=== PATIENT | female | born 2005 | race Caucasian/White ===

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

== ENCOUNTER 2024-06-24 13:50 | Emergency (ER) | payer OTHER ==
[~2024-06-24] VITALS: Ht 165.1 cm; Wt 53.1 kg
[~2024-06-24 13:50] MED LIST changes: +Ondansetron4 MG PO; +PEPCID40 MG PO
[2024-06-24] MEDS ORDERED: SODIUM CHLORIDE 0.9% 1,000 ML IV ONE (14:10)
[2024-06-24] MEDS ORDERED: Metoclopramide Hydrochloride 10 MG/2 ML VIAL IV ONE (14:10)
[2024-06-24] MEDS ORDERED: diphenhydrAMINE hydrochloride 50 MG/ML VIAL IV ONE (14:10)
[2024-06-24 14:26] LABS: BASO % 0.3 % (0.0-1.0); EOS % 0.2 % (1.0-4.0); HEMATOCRIT 40.4 % (37.0-47.0); MEAN CELL VOLUME 92.9 fl (81.0-99.0); MEAN CORPUSCULAR HGB 29.9 pg (27.0-31.0); MEAN CORPUSCULAR HGB CONC 32.2 g/dl (33.0-37.0); MEAN PLATELET VOLUME 9.7 fl (9.6-12.3); MONO # 0.3 10*3/uL (0.1-1.0); MONO % 2.9 % (3.0-9.0); NEUT # 6.8 10*3/uL (2.3-7.9); NEUT % 78.8 % (47.0-73.0); PLATELET COUNT AUTOMATED 279 10*3/uL (130-400); RED BLOOD COUNT 4.35 10*6/uL (4.10-5.10); WHITE BLOOD COUNT 8.6 10*3/uL (4.8-10.8)
[2024-06-24] MEDS ORDERED: IOHEXOL 300 MG/ML 100 ML VIAL IV ONE (14:35)
[2024-06-24 14:48] LABS: ALKALINE PHOSPHATASE 49 U/L (46-116); BUN 10 mg/dl (9-23); CHLORIDE 104 mmol/L (98-107); LIPASE 28 U/L (12-53); POTASSIUM 3.8 mmol/L (3.4-5.1); SGPT/ALT 17 U/L (5-49); TOTAL PROTEIN 6.9 gm/dL (6.0-8.0)
[2024-06-24 15:44] LABS: BILIRUBIN Negative (Negative); BLOOD Negative (Negative); CLARITY Cloudy (Clear); COLOR Yellow (Yellow); GLUCOSE Negative (Negative); KETONE Trace (Negative); LEUKO ESTERASE Negative (Negative); NITRITE Negative (Negative); PH 7.5 (4.5-8.0); SPECIFIC GRAVITY 1.025 (1.001-1.030)
[2024-06-24] MEDS ORDERED: Ciprofloxacin Hydrochloride 500 MG TAB PO ONE (16:05)
[2024-06-24] MEDS ORDERED: metroNIDAZOLE 500 MG TAB PO ONE (16:05)
[2024-06-24 16:06] LABS: URINE AMPHETAMINES Negative (1000ng/ml); URINE BARBITURATES Negative (200ng/ml); URINE BENZODIAZEPINES Negative (200ng/ml); URINE CANNABINOIDS (THC) Positive (50ng/ml); URINE COCAINE Negative (300ng/ml); URINE METHADONE Negative (300ng/ml); URINE OPIATES Negative (300ng/ml); URINE PHENCYCLIDINE Negative (25ng/ml)
[2024-06-24 16:24] LABS: BACTERIA 1+; EPITHELIAL CELLS 21-30; MUCOUS 3+
[2024-06-24] MEDS ORDERED: METRONIDAZOLE500 M1 PO (16:28)
[2024-06-24] MEDS ORDERED: Ondansetron4 MG SL (16:28)
[2024-06-24] MEDS ORDERED: CIPRO500 MG PO (16:28)
== END 2024-06-24 16:47 | disposition home or self-care (01) ==
LOC: ED 13:50
PROVIDERS: Internal Medicine
DX: K52.9 Noninfective gastroenteritis and colitis, unspecified (principal); K21.9 Gastro-esophageal reflux disease without esophagitis; J45.909 Unspecified asthma, uncomplicated; Z79.899 Other long term (current) drug therapy

== ENCOUNTER 2024-11-13 20:25 | Emergency (ER) | payer OTHER ==
[~2024-11-13] VITALS: Ht 165.1 cm
[~2024-11-13 20:25] MED LIST changes: +METRONIDAZOLE500 M1 PO; +Ondansetron4 MG SL
[2024-11-13] MEDS ORDERED: Ondansetron Hydrochloride 4 MG/2 ML VIAL IV ONE (20:55)
[2024-11-13] MEDS ORDERED: SODIUM CHLORIDE 0.9% 1,000 ML IV ONE (20:55)
[2024-11-13 21:12] LABS: BASO # 0.0 10*3/uL (0.0-0.1); BASO % 0.4 % (0.0-1.0); EOS # 0.0 10*3/uL (0.0-0.4); EOS % 0.0 % (1.0-4.0); MEAN CELL VOLUME 93.2 fl (81.0-99.0); MEAN CORPUSCULAR HGB 30.5 pg (27.0-31.0); MEAN PLATELET VOLUME 10.8 fl (9.6-12.3); MONO # 0.2 10*3/uL (0.1-1.0); MONO % 3.2 % (3.0-9.0); NEUT # 5.9 10*3/uL (2.3-7.9); NEUT % 79.2 % (47.0-73.0); NUCLEATED RED BLOOD CELL 0.0 % (0.0-0.0); NUCLEATED RED BLOOD CELL 0.0 10*3/uL (0.0-0.0); PLATELET COUNT AUTOMATED 208 10*3/uL (130-400); RED CELL DISTRI WIDTH 12.5 % (0-14.5)
[2024-11-13 21:30] LABS: BILIRUBIN Negative (Negative); BLOOD Negative (Negative); CLARITY Clear (Clear); COLOR Yellow (Yellow); KETONE 2+ (Negative); LEUKO ESTERASE Negative (Negative); NITRITE Negative (Negative); PH 8.0 (4.5-8.0); SPECIFIC GRAVITY 1.025 (1.001-1.030); UROBILINOGEN 1.0 E.U./dl (0.0-1.0)
[2024-11-13 21:42] LABS: BACTERIA 1+; MUCOUS 2+
[2024-11-13 21:47] LABS: BUN 15 mg/dl (9-23)
[2024-11-13] MEDS ORDERED: Ondansetron4 MG PO (21:54)
== END 2024-11-13 22:30 | disposition home or self-care (01) ==
LOC: ED 20:25
PROVIDERS: Nurse Practitioner Family
DX: S50.11XA Contusion of right forearm, initial encounter (principal); E86.0 Dehydration; R11.2 Nausea with vomiting, unspecified; W18.09XA Striking against other object with subsequent fall, initial encounter; Y93.89 Activity, other specified; Y92.89 Other specified places as the place of occurrence of the external cause; Y99.8 Other external cause status

== ENCOUNTER 2024-12-11 18:07 | Emergency (ER) | payer OTHER ==
[~2024-12-11] VITALS: Wt 61.2 kg
[2024-12-11] MEDS ORDERED: SODIUM CHLORIDE 0.9% 1,000 ML IV ONE ×2 (18:10→20:55)
[2024-12-11 18:46] LABS: BASO # 0.0 10*3/uL (0.0-0.1); BASO % 0.6 % (0.0-1.0); EOS # 0.1 10*3/uL (0.0-0.4); EOS % 1.4 % (1.0-4.0); MEAN CELL VOLUME 96.4 fl (81.0-99.0); MEAN CORPUSCULAR HGB 30.5 pg (27.0-31.0); MEAN PLATELET VOLUME 10.6 fl (9.6-12.3); MONO # 0.2 10*3/uL (0.1-1.0); MONO % 4.6 % (3.0-9.0); NEUT # 3.0 10*3/uL (2.3-7.9); NEUT % 57.7 % (47.0-73.0); NUCLEATED RED BLOOD CELL 0.0 % (0.0-0.0); NUCLEATED RED BLOOD CELL 0.0 10*3/uL (0.0-0.0); PLATELET COUNT AUTOMATED 176 10*3/uL (130-400); RED CELL DISTRI WIDTH 12.8 % (0-14.5)
[2024-12-11 19:14] LABS: BUN 9 mg/dl (9-23)
[2024-12-11 19:21] LABS: BILIRUBIN Negative (Negative); BLOOD Negative (Negative); CLARITY Cloudy (Clear); COLOR Yellow (Yellow); KETONE Trace (Negative); LEUKO ESTERASE 1+ (Negative); NITRITE Negative (Negative); PH 7.5 (4.5-8.0); SPECIFIC GRAVITY 1.025 (1.001-1.030); UROBILINOGEN 1.0 E.U./dl (0.0-1.0)
[2024-12-11 19:53] LABS: BACTERIA 1+; MUCOUS 2+
[2024-12-11 21:17] LABS: URINE AMPHETAMINES Negative (1000ng/ml); URINE BARBITURATES Negative (200ng/ml); URINE BENZODIAZEPINES Negative (200ng/ml); URINE CANNABINOIDS (THC) Positive (50ng/ml); URINE COCAINE Negative (300ng/ml); URINE METHADONE Negative (300ng/ml); URINE OPIATES Negative (300ng/ml); URINE PHENCYCLIDINE Negative (25ng/ml)
== END 2024-12-11 22:51 | disposition home or self-care (01) ==
LOC: ED 18:07
PROVIDERS: Nurse Practitioner Family
DX: S09.90XA Unspecified injury of head, initial encounter (principal); R55 Syncope and collapse; K21.9 Gastro-esophageal reflux disease without esophagitis; J45.909 Unspecified asthma, uncomplicated; Z87.440 Personal history of urinary (tract) infections; W22.8XXA Striking against or struck by other objects, initial encounter; Y93.89 Activity, other specified; Y92.89 Other specified places as the place of occurrence of the external cause; Y99.8 Other external cause status

== ENCOUNTER 2025-02-06 11:32 | Emergency (ER) | payer OTHER ==
[~2025-02-06] VITALS: Ht 165.1 cm; Wt 63.5 kg
[2025-02-06] MEDS ORDERED: ACETAMINOPHEN 325 MG TAB PO ONE (12:00)
[2025-02-06] MEDS ORDERED: AMOX-CLAV 875-1 EACH PO (12:00)
[2025-02-06] MEDS ORDERED: Amoxicillin/Clavulanate Pota 875 MG TAB PO ONE (12:00)
[2025-02-06] MEDS ORDERED: Meloxicam 15 MG TAB PO ONE (12:00)
[2025-02-06] MEDS ORDERED: MELOXICAM15 MG PO (12:00)
== END 2025-02-06 12:18 | disposition home or self-care (01) ==
LOC: ED 11:32
DX: K04.7 Periapical abscess without sinus (principal); J45.909 Unspecified asthma, uncomplicated